=== PATIENT | female | born 1945 | race Caucasian/White ===

== ENCOUNTER 2019-02-09 20:05 | Emergency (ER) | payer MEDICARE, OTHER ==
[~2019-02-09] VITALS: Ht 170.2 cm; Wt 72.6 kg
[2019-02-09 20:05] VITALS: BP 157/102
--- NOTE | 2019-02-09 20:05 | NUR ---
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 PT ARRIVES TO ED, DENIES CP, SOB, N/V AT THIS TIME. PT AOX4, PERRLA MIDRANGE, SKIN NORMAL WARM AND DRY, RR EVEN AND UNLABORED. LUNG SOUNDS CLEAR BL. HX PE, CHF, CVA, CAD, DYSPHAGIA/GTUBE, RESP FAILURE/PREVIOUS TRACH, KIDNEY TRANSPLANT
--- NOTE | 2019-02-09 20:11 | NUR ---
PT WAS PUT IN BED #11 BY LUIZ
[2019-02-09] MEDS ORDERED: ASPIRIN 81 MG TAB.CHEW PO ONE (20:45)
[2019-02-09] MEDS ORDERED: NACL 0.9% 1,000 ML IV ONE (20:45)
[2019-02-09 21:05] LABS: BASOPHILS # (AUTO) 0.1 K/uL (0.00-0.22); BASOPHILS % (AUTO) 0.7 % (0.0-2.0); EOSINOPHILS # (AUTO) 0.2 K/uL (0-0.4); EOSINOPHILS % (AUTO) 1.6 % (0.0-4.0); HEMATOCRIT 28.5 % (36-48); HEMOGLOBIN 9.4 g/dL (12.0-16.0); LYMPHOCYTES # (AUTO) 2.9 K/uL (2.5-16.5); LYMPHOCYTES % (AUTO) 23.9 % (20.5-51.1); MEAN CORPUSCULAR HEMOGLOBIN 29 pg (27-31); MEAN CORPUSCULAR HGB CONC 33 g/dL (33-37); MEAN CORPUSCULAR VOLUME 89.2 fL (80-94); MONOCYTES # (AUTO) 0.8 K/uL (0.8-1.0); MONOCYTES % (AUTO) 6.3 % (1.7-9.3); NEUTROPHILS # (AUTO) 8.2 K/uL (1.8-7.7); NEUTROPHILS % (AUTO) 67.5 % (42.2-75.2); PLATELET COUNT (AUTO) 344 K/uL (140-450); RED BLOOD CELL COUNT(AUTO) 3.19 MIL/uL (4.20-5.40); RED CELL DISTRIBUTION WIDTH 17.5 % (11.6-13.7); WHITE BLOOD COUNT (AUTO) 12.1 K/uL (4.8-10.8)
--- NOTE | 2019-02-09 21:16 | NUR ---
Note talia in EDM - 02/09/19 at 2117 by AZAEL PT LAYING IN BED HIGH YUSUF'S, SPO2 94% ON BIPAP, RR 20 EVEN AND SLIGHTLY LABORED. REPORTS IMPROVEMENT IN SOB. PT AOX4, SKIN NORMAL WARM AND DRY. DENIES PAIN AT THIS TIME. ALL NEEDS MET AT THIS TIME.
[2019-02-09 21:19] LABS: PROTHROMBIN TIME 13.4 secs (10.8-13.4)
--- NOTE | 2019-02-09 21:20 | NUR ---
DR MEMBRENO AT BEDSIDE. PT LAYING IN BED, SON AT BEDSIDE. VSS. DENIES PAIN OR TINGLING AT THIS TIME. ALL NEEDS MET.
[2019-02-09 21:28] LABS: ALBUMIN 2.2 g/dL (3.4-5.0); ASPARTATE AMINOTRANSFERASE 16 U/L (15-37); CARBON DIOXIDE 26.2 mmol/L (21-32); CHLORIDE 96 mmol/L (98-107); CREATININE 2.2 mg/dL (0.6-1.3); GLUCOSE 193 mg/dL (74-106); POTASSIUM 4.2 mmol/L (3.5-5.1); SODIUM SERUM 128 mmol/L (136-145); TOTAL BILIRUBIN 0.2 mg/dL (0.0-1.0)
[2019-02-09 21:30] LABS: UREA NITROGEN, BLOOD 97 mg/dL (7-18)
[2019-02-09] MEDS ORDERED: PIPERACILLIN/TAZOBACTAM 3.375 GM in DEXTROSE 5% 50 ML IV ONE (21:35)
--- NOTE | 2019-02-09 22:20 | NUR ---
PT TAKEN TO CT
[2019-02-09] MEDS ORDERED: PIPERACILLIN/TAZOBACTAM 3.375 GM VIAL IV ONE (22:26)
[2019-02-09] MEDS ORDERED: KETOROLAC 30 MG/ML VIAL IVP ONE (22:50)
--- NOTE | 2019-02-10 02:11 | NUR ---
[facility] PERSONAL CALLED, PT TO BE TRANSPORTED TO [facility]. ETA IS 15 MIN. TRANSFER TO ED TO BE RE-EVALUATED. CALL TO GIVE REPORT TO [phone]. ADMITTING Addie LEOS MD MADE AWARE OF STATUS.
--- NOTE | 2019-02-10 02:22 | NUR ---
PT LAYING IN BED, RR EVEN AND UNLABORED. PT HAD LARGE LOOSE BROWN BOWEL MOVEMENT, PT CLEANED AND ADULT DIAPER CHANGED. PICTURES TAKEN ON R HEEL UNSTAGEABLE ULCER, SACRAL REDNESS AND BUTTOCKS OPEN EXCORIATION, AND L UPPER ARM SKIN TEAR. VSS. ALL NEEDS MET.
[2019-02-10 02:30] VITALS: BP 131/64
--- NOTE | 2019-02-10 02:30 | NUR ---
Patient to be transferred to [facility] ER. Is being transferred due to PNEUMONIA, DEHYDRATION, KIDNEY TRANSPLANT; DUE TO INSURANCE REQUEST. Receiving facility has accepting physician and available space. ER physician has signed transfer form. Patient or responsible republican has agreed to transfer and signed form. Patient belongings inventoried and will be sent with patient. Copy of nursing notes, lab reports, EKG, Physicians Orders and X-rays to be sent with patient. Report called to JORDEN at receiving facility. [facility] service at bedside
== END 2019-02-10 02:30 | disposition short-term general hospital (02) ==
LOC: MED 20:05
DX: J18.9 Pneumonia, unspecified organism (principal); E87.1 Hypo-osmolality and hyponatremia; E11.9 Type 2 diabetes mellitus without complications; Z98.890 Other specified postprocedural states
CPT/HCPCS: 36415; 70450; 71045; 72125; 80053; 82948; 83605; 84484; 85025; 85610; 85730; 87040; 93005; 96365; 96375; 99285; J1885; J2543; J7030; J7060; Q0092